=== PATIENT | female | born 2000 | race Caucasian/White ===

== ENCOUNTER 2022-02-21 07:24 | Outpatient (CLI) | payer OTHER, SELFPAY ==
--- NOTE | ~2022-02-21 | NM_ITS ---
EXAM: NM gastric emptying study DATE: 02/21/2022 12:12 INDICATION: Nausea with vomiting TECHNIQUE: A gastric emptying study was performed using the methodology of Hermelindo BOATENG, et al. J Nucl Med 2007; 48:568-572. The patient was given a meal consisting of 2 scrambled eggs labeled with 0.962 mCi Tc-99m sulfur colloid, 2 slices of toast, two packages of jam, and approximately 120 mL of water . Simultaneous anterior and posterior 1-min images of the abdomen were obtained with the patient supi ne at multiple time points over a total period of 4 hours. The geometric mean of anterior and posteri or views was determined, and the percentage retention was calculated for each time point. COMPARISON: None. FINDINGS: Gastric retention of the radiotracer-labeled meal was 70%, 28%, and 10% at the 1-hour, 2-hour, and 4- hour time points, respectively. With this technique, apparent rapid gastric emptying is suggested by <30% gastric retention at 1 hour. Delayed gastric emptying is defined by gastric retention of >90% at 1 hour, >60% retention at 2 hours, or >10% retention at 4 hours. IMPRESSION: 1. Normal gastric emptying. Reviewed, dictated and finalized at location B. IMPRESSION: 1. Normal gastric emptying.
== END 2022-02-21 07:25 | disposition home or self-care (01) ==
PROVIDERS: PCP Emergency Medicine; Visit Provider Emergency Medicine
DX: R11.2 Nausea with vomiting, unspecified (principal)
CPT/HCPCS: 78264; A9541

== ENCOUNTER 2022-02-27 09:02 | Outpatient (CLI) | payer OTHER, SELFPAY ==
--- NOTE | ~2022-02-27 | XR_ITS ---
EXAMINATION: XR UGIAC w kub DATE: 02/27/2022 09:54 INDICATION: Nausea and vomiting. TECHNIQUE: The patient drank thick barium, gas-producing crystals, and thin barium. Fluoroscopy of th e esophagus, stomach, and proximal small bowel was performed. Fluoroscopy exposure time was 0.6 minut es. The total number of images was 266. Total dose-area product was 1.3 Gy-cm^2. COMPARISON: None. FINDINGS: There is no mass or stricture of the esophagus. Esophageal motility is normal. There is no hiatal hernia. The stomach and proximal small bowel show normal folding patterns. IMPRESSION: 1. Normal upper gastrointestinal series. Reviewed, dictated and finalized at location A. ES EDUCATOR
== END 2022-02-27 09:03 | disposition home or self-care (01) ==
PROVIDERS: PCP Emergency Medicine; Visit Provider Emergency Medicine
DX: R11.2 Nausea with vomiting, unspecified (principal)
CPT/HCPCS: 74246

== ENCOUNTER 2022-02-28 10:54 | Outpatient (CLI) | payer OTHER, SELFPAY ==
[2022-02-28 11:28] LABS: Hemoglobin 11.1 g/dL (12.0-15.0); Mean Corpuscular HGB Conc 31.7 g/dl (32-36); Mean Corpuscular Hemoglobin 28.4 pg (26-34); Mean Corpuscular Volume 89.5 fl (80-100); Mean Platelet Volume 8.7 fl (7.4-10.4); Platelet Count Result 496 k/mm3 (150-375); Red Blood Count 3.91 M/mm3 (4.2-5.4); Red Cell Distribution Width 14.1 % (11.5-14.5); White Blood Count 8.6 K/mm3 (4.5-10.0)
[2022-02-28 12:29] LABS: Alanine Aminotransferase 33 U/L (6-35); Albumin Level 4.2 g/dL (3.5-5.1); Alkaline Phosphatase 56 U/L (38-126); Anion Gap 8 mmol/L (8-16); Aspartate Amino Transferase 37 U/L (14-36); Bilirubin,Total 0.5 mg/dL (0.2-1.3); Blood Urea Nitrogen 7 mg/dL (7-17); Calcium 9.2 mg/dL (8.4-10.2); Carbon Dioxide 29 mmol/L (22-30); Chloride 102 mmol/L (98-107); Estimated Glomerular Filt Rate > 60; Glucose 101 mg/dL (65-110); Potassium 4.9 mmol/L (3.4-5.0); Sodium 139 mmol/L (137-145)
[2022-02-28 12:32] LABS: Iron 372 ug/dL (37-170)
[2022-02-28 12:44] LABS: Percent Iron Saturation 95 % (20-50)
[2022-02-28 13:10] LABS: Thyroid Stimulating Hormone Reflex 0.314 uIU/mL (0.465-4.68)
[2022-02-28 13:35] LABS: Folic Acid 15.6 ng/mL (2.76->20)
[2022-02-28 13:48] LABS: Free T4 Free Thyroxine Reflex 1.25 ng/dL (0.78-2.19)
[2022-03-01 05:38] LABS: Total Triiodothyronine (T3) 1.19 NG/ML (0.97-1.69)
[2022-03-02 22:23] LABS: H pylori, Urea Breath NOT DETECTED (NOT DETECTED)
[2022-03-09 09:43] LABS: Gliadin AB, IgG <1.0 U/mL (<15.0); TTG IGA AB <1.0 U/mL (<15.0)
== END 2022-02-28 10:55 | disposition home or self-care (01) ==
LOC: ANHLAB 10:56
PROVIDERS: PCP Emergency Medicine; Visit Provider Nurse Practitioner
DX: R11.2 Nausea with vomiting, unspecified (principal); D64.9 Anemia, unspecified
CPT/HCPCS: 36415; 80053; 82607; 82728; 82746; 83013; 83516; 83540; 83550; 84439; 84443; 84480; 85027

== ENCOUNTER 2022-05-28 12:49 | Emergency (ER) | payer OTHER, SELFPAY ==
--- NOTE | ~2022-05-28 | CT_ITS ---
EXAMINATION: CT cervical spine wo con DATE: 05/28/2022 14:24 INDICATION: Neck pain TECHNIQUE: Computed tomography (CT) of the cervical spine was performed without intravenous contrast. The dose-length product (DLP) was 114.36 mGy-cm. Automated exposure control and iterative reconstruc tion technique were employed. COMPARISON: None FINDINGS: No fracture, dislocation, or subluxation. The vertebral body heights, alignment, and interv ertebral disc spaces are normal. The paravertebral soft tissues are unremarkable. The odontoid proces s is intact. IMPRESSION: 1. No acute osseous abnormality. Reviewed, dictated and finalized at location B. AL ASSISTING INSTRUCTOR
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
--- NOTE | ~2022-05-28 | XR_ITS ---
EXAMINATION: XR knee RT min 4V DATE: 05/28/2022 14:47 INDICATION: Right knee pain TECHNIQUE: Four views of the right knee were obtained. COMPARISON: None. FINDINGS: Alignment is normal. No fracture or osteochondral lesion. Joint spaces are normal with no e rosions. No joint effusion/synovitis. Soft tissues are unremarkable. IMPRESSION: 1. No acute osseous abnormality. Reviewed, dictated and finalized at location B. PRESIDENT REGULATORY
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
[2022-05-28 13:27] VITALS: BP 136/69; PULSE 89; RESP 16; TEMP 36.9; O2SAT 98
[2022-05-28] MEDS: IBUPROFEN 400 MG TABLET PO (14:15)
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
== END 2022-05-28 15:48 | disposition home or self-care (01) ==
PROVIDERS: Emergency Provider Emergency Medicine; PCP Emergency Medicine
DX: S16.1XXA Strain of muscle, fascia and tendon at neck level, initial encounter (principal); S80.01XA Contusion of right knee, initial encounter; S40.011A Contusion of right shoulder, initial encounter; S50.01XA Contusion of right elbow, initial encounter; V43.52XA Car driver injured in collision with other type car in traffic accident, initial encounter
CPT/HCPCS: 71046; 72125; 73030; 73080; 73564; 81025; 99284; A9270

== ENCOUNTER 2023-02-01 10:16 | Observation (INO) | payer OTHER, BC, SELFPAY ==
[2023-02-01] VITALS (8 sets, daily range): BP systolic 95–123; BP diastolic 66–83; PULSE 65–104; RESP 14–18; TEMP 36.8–37; O2SAT 98–100; BMI 16.9
--- NOTE | ~2023-02-01 | CT_ITS ---
EXAMINATION: CT brain wo con DATE: 02/01/2023 12:53 INDICATION: Headache. Visual disturbance. TECHNIQUE: Computed tomography (CT) of the head was performed without intravenous contrast. The mA wa s adjusted according to patient size. Iterative reconstruction technique was employed. The dose-lengt h product was 605.33 mGy-cm. COMPARISON: None FINDINGS: There is no intracranial hemorrhage, acute infarction, or abnormal intracranial mass lesion . The ventricles are normal in size. The paranasal sinuses are clear. The mastoid air cells are cass l. IMPRESSION: 1. Normal brain. Reviewed, dictated and finalized at location A. IMPRESSION: 1. Normal brain.
--- NOTE | ~2023-02-01 | MR_ITS ---
EXAMINATION: MR brain/brain stem wo/w con DATE: 02/02/2023 12:17 INDICATION: Visual disturbance. Headache. TECHNIQUE: Magnetic resonance imaging (MRI) of the brain and brainstem was performed without and with 8 mL MultiHance intravenous contrast. COMPARISON: Head CT 02/01/2023 FINDINGS: There is a punctate focus of increased T2-weighted signal intensity in the right frontal lo be deep white matter, which is normal as an isolated finding. There is no intracranial hemorrhage, ac steve infarction, or abnormal intracranial mass lesion. The ventricles are normal in size. The paranasa l sinuses are clear. The orbits are normal. The mastoid air cells are normal. IMPRESSION: 1. Normal brain. Reviewed, dictated and finalized at location A. IMPRESSION: 1. Normal brain.
--- NOTE | ~2023-02-01 | XR_ITS ---
Clinical Indication: Weight loss PA and lateral views of the chest: Comparison: 05/28/2022 Findings: The lungs are clear, without evidence of focal consolidation or pleural effusion. Cardiome diastinal silhouette is within normal limits. Bones and soft tissues are unremarkable. Impression: Normal chest. Reviewed, dictated and finalized at location . Impression: Normal chest.
--- NOTE | ~2023-02-01 | MR_ITS ---
EXAMINATION: MR orbits face neck wo/w con DATE: 02/02/2023 12:17 INDICATION: Visual disturbance. Headache. TECHNIQUE: Magnetic resonance imaging (MRI) of the orbits was performed without and with 8 mL MultiHa nce intravenous contrast. COMPARISON: head CT 02/01/23 FINDINGS: The extraocular muscles and optic nerves are normal. The optic chiasm is normal. The ocular globes are normal. There is no abnormal mass. IMPRESSION: 1. Normal orbits. Reviewed, dictated and finalized at location A. IMPRESSION: 1. Normal orbits.
[2023-02-01 12:02] LABS: Basophils Percent Auto 0.6 % (0.2-1.2); Eosinophils Absolute Auto 0.5 K/mm3 (0-0.3); Eosinophils Percent Auto 6.4 % (0-4.4); Hematocrit 40.2 % (37.0-47.0); Hemoglobin 13.4 g/dL (12.0-15.0); Immature Granulocyte Absolute 0.02 K/mm3 (0.00-0.031); Immature Granulocyte Percent A 0.3 % (0-0.5); Lymphocytes Absolute Auto 1.32 K/mm3 (0.9-3.2); Lymphocytes Percent Auto 18.6 % (18.3-44.2); Mean Corpuscular HGB Conc 33.3 g/dl (32-36); Mean Corpuscular Hemoglobin 31.7 pg (26-34); Mean Platelet Volume 9.3 fl (7.4-10.4); Monocytes Absolute Auto 0.6 K/mm3 (0.1-0.6); Monocytes Percent Auto 8.3 % (2.6-8.5); Neutrophils Absolute Auto 4.7 K/mm3 (1.3-6.7); Neutrophils Percent Auto 65.8 % (45.5-73.1); Platelet Count Result 288 k/mm3 (150-375); Red Blood Count 4.23 M/mm3 (4.2-5.4); Red Cell Distribution Width 11.9 % (11.5-14.5); White Blood Count 7.1 K/mm3 (4.5-10.0)
[2023-02-01 12:08] LABS: Appearance Urine Clear (Clear); Bacteria Urine None Seen /hpf; Bilirubin Urine Negative (Negative); Color Urine Yellow (Yellow); Glucose Urine UA Negative (Negative); Ketones Urine Negative (Negative); Leukocyte Esterase Ur Negative LEU/UL (Negative); Nitrate Urine Negative (Negative); Non Pathogenic Casts 0-2; Protein Urine Negative (Negative); RBC Urine 0-2 /hpf (0-2); Squamous Epithelial Cell Urine Occasional /hpf (Few); Urobilinogen Urine 0.2 mg/dL (<2.0); WBC Urine 0-5 /hpf
[2023-02-01 12:13] LABS: Alanine Aminotransferase 16 U/L (6-35); Albumin Level 4.8 g/dL (3.5-5.1); Alkaline Phosphatase 42 U/L (38-126); Anion Gap 8 mmol/L (8-16); Aspartate Amino Transferase 23 U/L (14-36); Bilirubin,Total 0.7 mg/dL (0.2-1.3); Blood Urea Nitrogen 8 mg/dL (7-17); Calcium 9.4 mg/dL (8.4-10.2); Carbon Dioxide 26 mmol/L (22-30); Chloride 105 mmol/L (98-107); Estimated CRCL calculation 82 ml/min; Estimated Glomerular Filt Rate > 60; Glucose 90 mg/dL (65-110); Sodium 139 mmol/L (137-145)
[2023-02-01 12:28] LABS: Add Urine Microscopic? YES
--- NOTE | 2023-02-01 12:36 | ED.GENADULT ---
HPI - General Adult General Chief complaint: Unspecified Stated complaint: shakey vision since Saturday Time Seen by Provider: 02/01/23 12:36 Source: patient Mode of arrival: ambulatory Limitations: no limitations History of Present Illness HPI narrative: 22 years old white female came to the emergency room by private car from home complaining of that her vision is shaking, cannot concentrate over the last 3 days, could not continue to work at that time, could not drive because she felt unsafe. Associated with a frontal dull aching headache. Patient reported having similar headache in the past. Unknown if she have history of migraine headache or not, her mom have history of migraine headache, patient started on hydroxychloroquine 4 weeks ago for possible systemic lupus because she been having joint pain and aches and butterfly rash on the face for a while. Patient is not sure if her symptoms are improving since started hydroxychloroquine or not. Currently patient still having frontal headache and shaky vision. Related Data Home Medications Medication Instructions Recorded Confirmed cariprazine 6 mg capsule (Vraylar) 6 mg PO DAILY 02/28/22 02/28/22 venlafaxine 150 mg 150 mg PO DAILY 02/28/22 02/28/22 capsule,extended release 24 hr (Effexor XR) Allergies Allergy/AdvReac Type Severity Reaction Status Date / Time kidney cornell Allergy Severe Swelling Uncoded 02/01/23 11:57 of Lip/Tongue/Throat quevedo cornell Allergy Severe Swelling Uncoded 02/01/23 11:57 of Lip/Tongue/Throat rodriguez peppers Allergy Swelling Uncoded 02/01/23 11:57 of Lip/Tongue/Throat Review of Systems Review of Systems: All systems reviewed & are unremarkable except as noted in HPI and below PMFSH Past Medical History Medical History Patient denies significant medical history Social History Social History Smoking status: Never smoker Second hand tobacco smoke exposure: No Alcohol intake: never Substance use: never Living arrangements: with family Gender identity (if verbalized by the patient): Female Exam Narrative: General appearance: Well-developed, well-nourished Skin: Normal color Head: Normocephalic, nontraumatic Eyes: Clear conjunctiva ENT: Oropharynx normal, ears normal, nose normal Neck: Supple, nontender Chest and respiratory: Airway patent, no respiratory distress, no accessory muscle use Heart: Regular rate/rhythm Abdomen: Soft, nontender, no organomegaly, quiet bowel sounds Vascular: Normal peripheral pulses, normal capillary refill. Musculoskeletal: Normal range of motion, nontender back Neurologic: Alert and oriented ?3, AIR TUBE RELEASER is normal as tested, no gross motor deficit Course Consultations Consultation #1: DR SPENCE, repair coil winder at [facility], requested to refer patient to a neurologist Date: 02/01/23 Time: 14:34 Consultation #2: Dr. Dubose Date: 02/01/23 Time: 16:29 Vital Signs Vital signs: Vital Signs Temperature 37.0 C 02/01/23 10:38 Pulse Rate 93 02/01/23 10:38 Respiratory Rate 14 02/01/23 10:38 Blood Pressure 95/69 L 02/01/23 10:38 Pulse Oximetry 98 02/01/23 10:38 Oxygen Delivery Room Air 02/01/23 10:38 Temperature 37.0 C 02/01/23 10:38 Pulse Rate 96 02/01/23 14:00 Respiratory Rate 18 02/01/23 14:00 Blood Pressure 114/74 02/01/23 14:00 Pulse Oximetry 100 02/01/23 14:00 Oxygen Delivery Room Air 02/01/23 10:38 Medical Decision Making MDM Narrative Medical decision making narrative: Patient presents with shaky vision
[2023-02-01] MEDS: HYDROmorphone HCL INJ (*CRX) 1 MG/ML SYR 0.5 MG IV PUSH (13:06)
[2023-02-01] MEDS: SODIUM CHLORIDE 0.9% IV 1,000 ML 999 ML IV CONT (13:06)
[2023-02-01 15:59] LABS: Erythrocyte Sedimentation Rate 7 mm/hr (0-20)
--- NOTE | 2023-02-01 16:07 | PM.IMHP ---
H&P: HPI History of Present Illness Date/Time: 02/01/23 16:30 Chief Complaint: Visual disturbances. Narrative: This is a pleasant 22-year-old female, recently diagnosed with suspected lupus and started on hydroxychloroquine, who presented to the emergency department via private vehicle for evaluation of visual disturbances. The patient provides the following history. In the last several months she has developed headaches, joint pains (mainly in the hands and arms) and a butterfly rash extending to the eyelids. She was started on hydroxychloroquine about 3 weeks ago and she was referred to rheumatology at [facility] however it will be several weeks before they even review her case to see if she needs an appointment. She also recently completed a prednisone taper which seems to have helped her symptoms including her rash. She has been tolerating the drug okay without significant side effects. The last several days however she has developed visual disturbances, namely she reports that her vision is ?shaky? which persists with both eyes open or with 1 eye or the other open. She also complains of a constant frontal headache. She denies scotomas, loss of vision, and color vision changes. She denies vertigo, facial droop, focal weakness, paresthesias, difficulty speaking, and difficulty swallowing. No history of thyroid disease. No fall or head trauma. She was afebrile on arrival to the ED with stable vital signs. CMP and CBC are pretty unremarkable although her eosinophil count was elevated 6.4%. UA was unremarkable. Brain CT and chest x-ray were normal. ED physician spoke with Ophthalmology and Neurology and Dr. Dubose recommends inpatient monitoring and MRI. Ophthalmology did not feel they need to be involved. Review of Systems Review of Systems: Twelve systems were reviewed and are negative except for as per HPI. [facility] Past Medical History Medical History (Updated 02/01/23 @ 21:25 by Daina Greco PA-C) Systemic lupus erythematosus Surgical History Surgical History (Updated 02/01/23 @ 21:21 by Daina Greco PA-C) History of wisdom tooth extraction Family History Family History Other Unknown family medical history Social History Social History (Updated 02/01/23 @ 21:22 by Daina Greco PA-C) Social History: Surrogate medical decision maker: Tiki Card, mother. Code status: Full code. 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 Spiritual care concerns: No Meds Home Medications and Allergies Home Medications Medication Instructions Recorded Confirmed Type hydroxychloroquine 200 mg tablet 200 mg PO DAILY 02/01/23 02/01/23 History Allergies Allergy/AdvReac Type Severity Reaction Status Date / Time kidney cornell Allergy Severe Swelling Uncoded 02/01/23 11:57 of Lip/Tongue/Throat quevedo cornell Allergy Severe Swelling Uncoded 02/01/23 11:57 of Lip/Tongue/Throat rodriguez peppers Allergy Swelling Uncoded 02/01/23 11:57 of Lip/Tongue/Throat Vital Signs Vital Signs - 24 hr 02/01/23 10:38 02/01/23 11:59 02/01/23 13:11 Temperature 98.6 F Pulse Rate 93 93 104 H Respiratory Rate 14 16 18 Blood Pressure 95/69 L 106/77 115/78 Pulse Oximetry 98 100 100 Oxygen Delivery Room Air 02/01/23 14:00 Temperature Pulse Rate 96 Respirat
--- NOTE | 2023-02-01 17:30 | ADMGEN ---
This patient, Traci Card, was admitted to Medical Room 342-01. Patient/family oriented to hospital policies and general routines including ID bracelet, bed and alarms, visiting hours, pain management, procedures, bathroom and other care routines, personal items, smoking policy, room service/diet, and visiting hours. Information on how to activate the Rapid Response Team has been discussed. Patient/Family are encouraged to report perceived risks to care and to ask questions if they do not understand what they are told or what they should do.
[2023-02-01] MEDS: ONDANSETRON INJ 4 MG/2 ML VIAL IV PUSH (18:38)
[2023-02-02] VITALS: PULSE 75
[2023-02-02 04:00] VITALS: PULSE 104
[2023-02-02 04:16] VITALS: BP 121/61; PULSE 86; RESP 16; TEMP 36.4; O2SAT 100
[2023-02-02 06:17] LABS: Anion Gap 10 mmol/L (8-16); Blood Urea Nitrogen 15 mg/dL (7-17); Calcium 9.1 mg/dL (8.4-10.2); Carbon Dioxide 22 mmol/L (22-30); Chloride 103 mmol/L (98-107); Estimated CRCL calculation 83 ml/min; Estimated Glomerular Filt Rate > 60; Glucose 65 mg/dL (65-110); Potassium 4.3 mmol/L (3.4-5.0); Sodium 135 mmol/L (137-145)
[2023-02-02 08:00] VITALS: PULSE 99
--- NOTE | 2023-02-02 10:07 | WPDNEURCNPN ---
Assessment and Plan Assessment and plan (1) Visual disturbance: Code(s): H53.9 - Unspecified visual disturbance Status: Acute (2) Headache: Qualifiers: Headache chronicity pattern: unspecified pattern Headache type: unspecified Intractability: not intractable Qualified Code(s): R51.9 - Headache, unspecified Code(s): R51.9 - Headache, unspecified Status: Acute (3) Systemic lupus erythematosus: Code(s): M32.9 - Systemic lupus erythematosus, unspecified Status: Acute Plan Traci Card is a 22 year old female with a history of suspect lupus presenting for evaluation of new visual disturbances. Concern that this may be hydroxchloroquine induced. She was admitted for MRI brain to rule out neurological cause for her symptoms. No focal neurological findings on exam. - MRI brain with and without contrast - MRI orbits with and without contrast - If imaging is negative, will need ophthalmological evaluation Consult date: 02/02/23 Reason for consult: Visual disturbance HPI: Traci Card is a 22 year old female with a history of suspect lupus presenting for evaluation of new visual disturbances. Patient started having symptoms concerning for lupus for the past several months including headache, joint pain, butterfly rash. She was started on hydroxychloroquine about three weeks ago. She also recently completed a prednisone taper. Over the past few days she started noticing that her vision felt shaky , which persisted with both eyes open or with one eye open or closed. She has also been having a constant frontal headache. She denies any vision loss, double vision, or change n color vision. She has no other focal neurological symptoms. When she was evaluated in the ED, there was no evidence of nystagmus or abnormal extraocular movements on exam. She has been normotensive throughout her stay. CT head was done which was normal. The ED physician spoke with Ophthalmology at [facility] and they felt that they did not need to be involved at this point, and recommend Neurology consultation. She was subsequently admitted and her hydroxychloroquine is currently being held. Patient reports that she went to an education nurse at [facility] a few days ago and was told that everything looked fine. She still feels that her vision is not normal. She describes the sensation of still objects appearing to move slightly up/down and side to side. Review of Systems Constitutional: Constitutional: Denies chills, Denies fever(s) and Denies weight loss Eyes: Eyes: Denies diplopia and Denies loss of vision Comments: visual change ENT: Denies dizziness, Denies hearing loss and Denies tinnitus Cardiovascular: Cardiovascular: Denies chest pain, Denies syncope and Denies dyspnea Respiratory: Respiratory: Denies cough, Denies dyspnea and Denies wheezing Gastrointestinal: Gastrointestinal: Denies abdominal pain, Denies change in bowel habits and Denies vomiting Genitourinary: Genitourinary: Denies urinary incontinence Musculoskeletal: Musculoskeletal: Denies arthralgias and Denies joint swelling Integumentary/Breasts: Skin/Breast: Denies new lesions and Denies rash Neurologic: Reports as per HPI, Denies dizziness, Denies syncope and Denies loss of vision Psychiatric: Psychiatric: Reports anxiety and Denies depression Endocrine: Endocrine: Denies cold intolerance and Denies heat intolerance Hematologic/Lymphatic: Hematologic/Lymphatic: Denies easy bleeding and Denies easy bruising Allergic/Immunologic: Allergic/Immunologic: Denies no additional allergic/immunologic complaints and Denies wheezing PMFSH Past Medical History Medical History Systemic lupus erythematosus Surgical History Surgical History History of wisdom tooth extraction Family History Family History (Reviewed 02/02/23 @ 12:52 by Fide Thompson
[2023-02-02 10:14] LABS: Total Triiodothyronine (T3) 1.07 NG/ML (0.97-1.69)
--- NOTE | 2023-02-02 11:27 | PC.NURSE ---
Patient off of unit to MRI
--- NOTE | 2023-02-02 12:23 | PC.NURSE ---
Patient returned to unit from MRI
--- NOTE | 2023-02-02 13:32 | PM.DS ---
DS: Admitting Diagnosis Discharge Date 02/02/2023 Admitting Diagnosis Visual disturbance, headache, systemic lupus erythematosus DS: Discharge Diagnosis Discharge Diagnosis (1) Visual disturbance: Code(s): H53.9 - Unspecified visual disturbance Status: Acute (2) Headache: Qualifiers: Headache chronicity pattern: unspecified pattern Headache type: unspecified Intractability: not intractable Qualified Code(s): R51.9 - Headache, unspecified Code(s): R51.9 - Headache, unspecified Status: Acute (3) Systemic lupus erythematosus: Code(s): M32.9 - Systemic lupus erythematosus, unspecified Status: Acute DS: Summary Hospital Course Reason for hospitalization: This is a 22-year-old female patient with SLE who is admitted for shaky vision. She was admitted for neurology consult. Hospital Course: Patient was admitted for neurology consulted due to a headache with shaky vision ongoing for about the last week or so. MRI of the brain and orbits was negative. Neurology saw patient in the hospital and stated that if MRI was normal patient would need to pursue clinic workup with Ophthalmology. ER physician contacted [facility] yesterday who was the 1 recommended neurology assessment. 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 Patient reports having a primary care provider to follow up with. She is requesting a work note. Patient is uncomfortable driving so neurology recommends she does not drive at this time until cleared by another provider. Status at Discharge Cognitive/behavioral status at discharge: Awake alert oriented and tearful Functional status at discharge: independent ambulation Overall status at discharge: patient is not back to baseline Time Spent with Patient Time attestation: Total time spent providing and/or coordinating discharge services: 25 minutes Time spent: Less than 30 minutes Exam Narrative: General: Well-developed, nontoxic-appearing female sitting up in bed in no acute distress. Weight: 41.9 kg. BMI: 16.9. HEENT: Normocephalic, atraumatic. PERRL, EOMI. Sclera anicteric. Oral mucosa moist. Oropharynx clear. no nystagmus Neck: Supple. No bruits. Thyroid does not seem enlarged. Respiratory: Lungs are clear to auscultation bilaterally. Cardiovascular: Regular rate and rhythm with S1-S2. Gastrointestinal: Abdomen is soft, nontender, and nondistended with positive bowel sounds. Skin: Warm and dry. Old scars on forearm from history of cutting. Erythematous rash over the eyelids bilaterally with scattered, fine papules. Extremities: No cyanosis, clubbing, or edema. Radial and pedal pulses intact. Neurological: Alert and oriented. Cranial nerves 2-12 are grossly intact. Speech is clear. No facial asymmetry. No nystagmus. No pronator drift. Normal [id number] and rapid alternating movements. Psychiatric: Pleasant and cooperative with normal mood and affect. Judgment and insight intact. Patient became tearful when discussing we do not have explanation for her symptoms. DS: Data Data Completed and Pending Completed studies during hospitalization: MRI brain, MRI orbits Labs on day of discharge: Labs from last 24 hours 02/02/23 02/01/23 05:38 11:51 ESR 7 Sodium 135 L Potassium 4.3 Chloride 103 Carbon Dioxide 22 Anion Gap 10 BUN 15 D Creatinine 0.60 L Estim Creat Clear Calc 83 Estimated GFR > 60 Glucose 65 Calcium 9.1 Magnesium 2.0 TSH (Reflex) 0.230 L Free T4 1.70 Total T3 1.07 Discharge Plan Discharge Attending physician on discharge: Vernon Macdonald Consulting providers: Fide Dubose Discharging Clinician: Dutch Pulido Anticipated Discharge Date/Time: 02/02/23 15:00 Patient Disposition: Home, Self
[2023-02-02 14:00] VITALS: BP 124/76; PULSE 96; RESP 18; TEMP 36.8; O2SAT 100
== END 2023-02-02 14:45 | disposition home or self-care (01) ==
LOC: ANHED 16:30 → ANH3MED 02-02 13:20
PROVIDERS: Emergency Medicine; Physician Assistant; Admitting Provider Hospitalist; Emergency Provider Emergency Medicine; PCP Nurse Practitioner Adult Health; Visit Provider Internal Medicine
DX: H53.9 Unspecified visual disturbance (principal); R51.9 Headache, unspecified; M32.9 Systemic lupus erythematosus, unspecified; R41.840 Attention and concentration deficit; R63.4 Abnormal weight loss; Z68.1 Body mass index [BMI] 19.9 or less, adult; Z79.899 Other long term (current) drug therapy; F14.90 Cocaine use, unspecified, uncomplicated
CPT/HCPCS: 36415; 70450; 70543; 70553; 71046; 80048; 80053; 81001; 81025; 83735; 84439; 84443; 84480; 85025; 85652; 96361; 96374; 96375; 99285; A9577; G0378; G0379; J1170; J2405; J7030

== ENCOUNTER 2023-03-30 17:02 | Emergency (ER) | payer OTHER, BC, SELFPAY ==
[2023-03-30 17:04] VITALS: BP 116/73; PULSE 84; RESP 16; TEMP 36.6; O2SAT 100
[2023-03-30 17:33] LABS: Bacteria Urine None Seen /hpf; Non Pathogenic Casts 0-2; RBC Urine >100 /hpf (0-2); Squamous Epithelial Cell Urine Occasional /hpf (Few); WBC Urine 21-50 /hpf
[2023-03-30 17:36] LABS: Basophils Absolute Auto 0.1 K/mm3 (0.0-0.1); Basophils Percent Auto 0.8 % (0.2-1.2); Eosinophils Absolute Auto 0.3 K/mm3 (0-0.3); Eosinophils Percent Auto 3.9 % (0-4.4); Hematocrit 37.2 % (37.0-47.0); Hemoglobin 12.3 g/dL (12.0-15.0); Immature Granulocyte Absolute 0.01 K/mm3 (0.00-0.031); Immature Granulocyte Percent A 0.1 % (0-0.5); Lymphocytes Absolute Auto 1.95 K/mm3 (0.9-3.2); Lymphocytes Percent Auto 24.8 % (18.3-44.2); Mean Corpuscular HGB Conc 33.1 g/dl (32-36); Mean Corpuscular Hemoglobin 30.6 pg (26-34); Mean Corpuscular Volume 92.5 fl (80-100); Mean Platelet Volume 9.1 fl (7.4-10.4); Monocytes Absolute Auto 0.7 K/mm3 (0.1-0.6); Monocytes Percent Auto 9.2 % (2.6-8.5); Neutrophils Absolute Auto 4.8 K/mm3 (1.3-6.7); Neutrophils Percent Auto 61.2 % (45.5-73.1); Platelet Count Result 350 k/mm3 (150-375); Red Blood Count 4.02 M/mm3 (4.2-5.4); Red Cell Distribution Width 12.2 % (11.5-14.5); White Blood Count 7.9 K/mm3 (4.5-10.0)
[2023-03-30 17:50] LABS: Barbiturate Screen Urine Negative (Negative); Benzodiazepines Screen Urine Negative (Negative)
[2023-03-30 17:52] LABS: Ethanol < 10 mg/dL (<10)
[2023-03-30 17:53] LABS: Alanine Aminotransferase 14 U/L (6-35); Albumin Level 4.9 g/dL (3.5-5.1); Alkaline Phosphatase 51 U/L (38-126); Anion Gap 9 mmol/L (8-16); Aspartate Amino Transferase 25 U/L (14-36); Bilirubin,Total 0.5 mg/dL (0.2-1.3); Blood Urea Nitrogen 12 mg/dL (7-17); Calcium 9.4 mg/dL (8.4-10.2); Carbon Dioxide 25 mmol/L (22-30); Chloride 105 mmol/L (98-107); Estimated CRCL calculation 85 ml/min; Estimated Glomerular Filt Rate > 60; Glucose 95 mg/dL (65-110); Potassium 4.1 mmol/L (3.4-5.0); Sodium 139 mmol/L (137-145)
--- NOTE | 2023-03-30 17:54 | ED.PSYCH ---
HPI - Psych General Chief Complaint: Psychiatric Symptoms <Annetta Sharif MD - Last Filed: 04/01/23 14:34> Stated Complaint: Suicidal <Annetta Sharif MD - Last Filed: 04/01/23 14:34> Time Seen by Provider: 03/30/23 17:10 <Annetta Sharif MD - Last Filed: 04/01/23 14:34> History of Present Illness HPI Narrative: Patient is a 22-year-old female with history of ADHD, schizophrenia here with hallucinations in thoughts of self-harm. She states that she was just discharged from [facility] yesterday where she was being seen for similar. She did try to hurt herself when to [place] by hitting her head. She notes that the auditory hallucinations are telling her to walk in front of traffic. She does have thoughts of killing herself by doing this. She denies any attempts of self-harm since her discharge. Today her mom contacted chest not to advised she come into the emergency department for medical evaluation prior to likely [facility]. She denies cough, congestion, fever, chills. <Annetta Sharif MD - Last Filed: 04/01/23 14:34> Related Data Home Medications: Home Medications Medication Instructions Recorded Confirmed fluoxetine 10 mg capsule 10 mg PO 03/30/23 <Annetta Sharif MD - Last Filed: 04/01/23 14:34> Allergies/Adverse Reactions: Allergies Allergy/AdvReac Type Severity Reaction Status Date / Time kidney cornell Allergy Severe Swelling Uncoded 03/30/23 17:31 of Lip/Tongue/Throat quevedo cornell Allergy Severe Swelling Uncoded 03/30/23 17:31 of Lip/Tongue/Throat rodriguez peppers Allergy Swelling Uncoded 03/30/23 17:31 of Lip/Tongue/Throat <Annetta Sharif MD - Last Filed: 04/01/23 14:34> Review of Systems Review of Systems: All systems reviewed & are unremarkable except as noted in HPI and below <Annetta Sharif MD - Last Filed: 04/01/23 14:34> PMFSH Past Medical History Medical History: Medical History Systemic lupus erythematosus <Annetta Sharif MD - Last Filed: 04/01/23 14:34> Surgical History Surgical History: Surgical History History of wisdom tooth extraction <Annetta Sharif MD - Last Filed: 04/01/23 14:34> Family History Family History: Family History Other Unknown family medical history <Annetta Sharif MD - Last Filed: 04/01/23 14:34> Social History Social History: Social History Social History: Surrogate medical decision maker: Tiki Card, mother. Code status: Full code. 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 Spiritual care concerns: No <Annetta Sharif MD - Last Filed: 04/01/23 14:34> Exam Narrative: GENERAL: Well-appearing, well-nourished, and in no acute distress. HEAD: Normocephalic, atraumatic. EYES: PERRLA and EOMI. ENT: Nares clear. Mucous membranes moist. NECK: Supple. CHEST: Clear to auscultation. No respiratory distress. HEART: Regular rate and rhythm. Normal peripheral pulses. ABDOMEN: Soft, nontender, nondistended. EXTREMITIES: Normal range of motion. No edema. SKIN: Warm, dry, no rash. Well-healed self-mutilation scars over upper extremities. NEURO: No focal deficits. Alert and oriented x3. PSYCH: Flat affect, with
[2023-03-30 18:05] LABS: Amphetamine Screen Urine Negative (Negative); Cannabinoid Screen Urine Positive (Negative); Cocaine Screen Urine Negative (Negative); Methadone Screen Urine Negative (Negative); Phencyclidine Screen Urine Negative (Negative)
[2023-03-30 18:11] LABS: Influenza A QL RT-PCR Negative (Negative); Influenza B QL RT-PCR Negative (Negative); SARS-CoV-2 RNA PCR Negative (Negative)
[2023-03-30 18:12] LABS: Color Urine Dark Yellow (Yellow)
[2023-03-30 18:13] LABS: Appearance Urine Slightly Cloudy (Clear)
[2023-03-30 18:16] LABS: Glucose Urine UA Negative (Negative); Opiate Screen Urine Negative (Negative); Protein Urine 2+ mg/dL (Negative); Specific Grav Ur >= 1.030 (1.001-1.035); pH Urine 5.5 (5.0-9.0)
[2023-03-30 18:17] LABS: Bilirubin Urine 1+ (Negative); Blood Urine 3+ (Negative); Ketones Urine Trace mg/dL (Negative); Leukocyte Esterase Ur Negative LEU/UL (Negative); Nitrate Urine Negative (Negative)
[2023-03-30 18:19] LABS: Add Urine Microscopic? YES
[2023-03-30 18:23] LABS: Thyroid Stimulating Hormone 0.994 uIU/mL (0.465-4.680)
--- NOTE | 2023-03-30 21:32 | PC.NURSE ---
This RN was told by RN on previous shift that pt was evaluated by [facility] and accepted at [facility] prior to coming to ED. [facility] was contacted by RN on previous shift. [facility] arrived for evaluation @2029 and reported to this Rn there was no need for their evaluation due to pt being evaluated by [facility] and meeting criteria earlier in the day.
--- NOTE | 2023-03-30 21:37 | PC.NURSE ---
[facility] contacted by this RN, [facility] reports they have not accepted pt yet. This rn to send pts paperwork over and follow up with [facility] regarding pts evaluation earlier today.
--- NOTE | 2023-03-30 23:01 | PC.NURSE ---
This RN spoke with admitting [facility] stated they were not made aware of pt and that she was not accepted at facility.
--- NOTE | 2023-03-30 23:22 | PC.NURSE ---
Crisis contacted at this time about situation with pt. Crisis made aware that [facility] cannot accept pt. Crisis to continue to look for placement for pt.
--- NOTE | 2023-03-31 04:17 | PC.NURSE ---
Crisis contacted at this time for an update on pt. Crisis reports they are still looking for a facility with an open bed and will call back with any updates.
--- NOTE | 2023-03-31 04:41 | PC.NURSE ---
requested paperwork faxed to [facility]
[2023-03-31 07:31] VITALS: BP 112/74; PULSE 65; RESP 18; O2SAT 100
--- NOTE | 2023-03-31 11:14 | PC.NURSE ---
Paperwork faxed to [facility], [facility], and [facility].
--- NOTE | 2023-03-31 19:17 | PC.NURSE ---
Assumed care of pt from ANAMARIA Newman at this time.
[2023-03-31 19:20] VITALS: BP 116/71; PULSE 74; RESP 17; O2SAT 100
--- NOTE | 2023-03-31 20:12 | PC.NURSE ---
[facility] declined patient
[2023-03-31] MEDS: LORazepam (*CRX) 0.5 MG TABLET PO (23:52)
--- NOTE | 2023-04-01 00:53 | PC.NURSE ---
This RN reassessed pt and pt stated she was trying very hard not to hit my head off the pedroza . EDP, Dr. Mendoza made aware and ordering medication for pt.
[2023-04-01] MEDS: HALOPERIDOL 5 MG TABLET PO (01:10)
[2023-04-01 05:15] VITALS: BP 102/69; PULSE 80; RESP 16; O2SAT 100
--- NOTE | 2023-04-01 07:22 | PC.NURSE ---
Report given to ANAMARIA Harmon at this time.
[2023-04-01 08:30] VITALS: BP 100/59; PULSE 79; RESP 16; TEMP 36.7; O2SAT 98
--- NOTE | 2023-04-01 11:51 | PC.NURSE ---
Wilmer with [facility] reported pt has been accepted to [facility]. Bed will be ready at 1300 and [facility] will provide transportation. Dr. Joseph informed
== END 2023-04-01 12:49 | disposition home or self-care (01) ==
PROVIDERS: Student in an Organized Health Care Education/Training Program; Emergency Provider Emergency Medicine; PCP Nurse Practitioner Adult Health
DX: R45.851 Suicidal ideations (principal); F20.9 Schizophrenia, unspecified; M32.9 Systemic lupus erythematosus, unspecified; Z20.822 Contact with and (suspected) exposure to COVID-19
CPT/HCPCS: 36415; 80053; 80307; 81001; 81025; 84443; 85025; 87086; 87636; 99284; A9270